=== PATIENT | female | born 1960 | race Caucasian/White ===

== ENCOUNTER 2018-01-27 07:18 | Inpatient (IN) | payer BC ==
[2018-01-27] VITALS (13 sets, daily range): BP systolic 108–137; BP diastolic 62–95; BMI 40.7
[~2018-01-27] VITALS: Ht 175.3 cm; Wt 128.3 kg
[2018-01-27] MEDS ORDERED: HYDROCHLOROTH12.5 M1 PO (07:31)
[2018-01-27] MEDS ORDERED: PRINIVIL20 MG PO (07:31)
[2018-01-27] MEDS ORDERED: TAZTIA XT360 MG PO (07:32)
[2018-01-27 08:05] LABS: BASOPHILS 0.4 % (0-2); EOSINOPHILS 0.4 % (0-7); HEMATOCRIT 52.7 % (36.0-48.0); HEMOGLOBIN 18.8 g/dL (12-16); IMMATURE GRANULOCYTES 0.7 % (0-5); LYMPHOCYTES 7.8 % (15-50); MCH 31.6 pg (26.0-34.0); MCHC 35.7 g/dL (31.0-37.0); MCV 88.6 fL (80.0-100.0); MEAN PLATELET VOLUME 10.4 fL (7.4-10.4); MONOCYTES 7.2 % (2-11); NEUTROPHILS 83.5 % (40-80); RBC 5.95 10x6/uL (4.00-5.40); RDW 13.2 % (11.5-14.5); WBC 8.2 10x3/uL (4.8-10.8)
[2018-01-27 08:15] LABS: PLATELET COUNT 140 10x3/uL (130-400)
[2018-01-27 08:21] LABS: ALBUMIN 3.9 g/dL (3.4-5.0); BILIRUBIN - TOTAL 0.64 mg/dL (0.2-1.3); CALCIUM 9.8 mg/dL (8.5-10.1); CARBON DIOXIDE 29.4 mmol/L (21.0-32.0); CREATININE - SERUM 1.1 mg/dL (0.6-1.3); POTASSIUM - SERUM 4.4 mmol/L (3.5-5.1); PROTEIN - SERUM 7.8 g/dL (6.4-8.2)
[2018-01-27 08:28] LABS: APPEARANCE HAZY (CLEAR); BACTERIA FEW /hpf (NONE SEEN); BILIRUBIN NEGATIVE (NEGATIVE); COLOR DK YELLOW (YELLOW); EPITHELIAL CELLS OCC /hpf (0-5); GLUCOSE NEGATIVE (NEGATIVE); HYALINE CAST RARE /lpf (NONE SEEN); KETONE NEGATIVE (NEGATIVE); MUCUS >1+ /lpf (NONE SEEN); NITRITE NEGATIVE (NEGATIVE); PROTEIN 1+ mg/dL (NEGATIVE); SPECIFIC GRAVITY 1.025 (1.005-1.020); UROBILINOGEN NORMAL (NORMAL); WHITE CELLS - URINE RARE /hpf (0-5)
[2018-01-28 01:20] VITALS: BP 145/90
[2018-01-28 04:59] LABS: BASOPHILS 0.4 % (0-2); EOSINOPHILS 1.4 % (0-7); HEMATOCRIT 48.1 % (36.0-48.0); HEMOGLOBIN 16.4 g/dL (12-16); IMMATURE GRANULOCYTES 0.4 % (0-5); MCH 30.8 pg (26.0-34.0); MCHC 34.1 g/dL (31.0-37.0); MCV 90.4 fL (80.0-100.0); MEAN PLATELET VOLUME 10.3 fL (7.4-10.4); MONOCYTES 11.9 % (2-11); NEUTROPHILS 74.9 % (40-80); PLATELET COUNT 121 10x3/uL (130-400); RBC 5.32 10x6/uL (4.00-5.40); RDW 13.3 % (11.5-14.5); WBC 7.2 10x3/uL (4.8-10.8)
[2018-01-28 05:18] LABS: ANION GAP 7.5 mmol/L (8-16); CALCIUM 8.4 mg/dL (8.5-10.1); MAGNESIUM - SERUM 2.1 mg/dL (1.8-2.4); PHOSPHOROUS 2.1 mg/dL (2.5-4.9); POTASSIUM - SERUM 3.5 mmol/L (3.5-5.1)
[2018-01-28 05:27] VITALS: BP 127/86
[2018-01-28 08:58] VITALS: BP 138/97
[2018-01-28 12:45] VITALS: BP 154/96
[2018-01-28 14:18] VITALS: Ht 175.3 cm; Wt 128.3 kg
[2018-01-28 16:46] VITALS: BP 156/94
[2018-01-28 20:00] VITALS: BP 149/99
[2018-01-29] VITALS: BP 116/77
[2018-01-29 04:00] VITALS: BP 119/82
[2018-01-29 05:39] LABS: BASOPHILS 0.3 % (0-2); EOSINOPHILS 2.5 % (0-7); HEMOGLOBIN 15.6 g/dL (12-16); IMMATURE GRANULOCYTES 0.7 % (0-5); LYMPHOCYTES 19.8 % (15-50); MCH 31.3 pg (26.0-34.0); MCHC 34.7 g/dL (31.0-37.0); MCV 90.2 fL (80.0-100.0); MEAN PLATELET VOLUME 10.2 fL (7.4-10.4); MONOCYTES 10.3 % (2-11); NEUTROPHILS 66.4 % (40-80); PLATELET COUNT 102 10x3/uL (130-400); RBC 4.99 10x6/uL (4.00-5.40); WBC 6.1 10x3/uL (4.8-10.8)
[2018-01-29 05:55] LABS: ANION GAP 9.5 mmol/L (8-16); CALCIUM 8.4 mg/dL (8.5-10.1); CARBON DIOXIDE 26.9 mmol/L (21.0-32.0); CREATININE - SERUM 0.9 mg/dL (0.6-1.3); POTASSIUM - SERUM 3.4 mmol/L (3.5-5.1)
[2018-01-29 08:45] VITALS: BP 135/85
[2018-01-29 12:30] VITALS: BP 137/92
[2018-01-29 16:45] VITALS: BP 120/80
[2018-01-29 20:00] VITALS: BP 126/89
[2018-01-30] VITALS: BP 126/73
[2018-01-30 04:00] VITALS: BP 128/74
[2018-01-30 08:43] VITALS: BP 156/98
== END 2018-01-30 14:42 | disposition home or self-care (01) | DRG 390 ==
LOC: D.ER 07:18 → D.EDHOLD 12:03 → D.MS 12:03
PROVIDERS: Family Medicine; Surgery
PROC: 0D9670Z Drainage of Stomach with Drainage Device, Via Natural or Artificial Opening (ICD-10-PCS; principal; 2018-01-27)
DX: K56.600 Partial intestinal obstruction, unspecified as to cause (principal); I10 Essential (primary) hypertension; F10.10 Alcohol abuse, uncomplicated; Z87.891 Personal history of nicotine dependence

== ENCOUNTER 2018-12-19 06:50 | Inpatient (IN) | payer BC ==
[~2018-12-19] VITALS: Ht 175.3 cm; Wt 122.4 kg
[~2018-12-19 06:50] MED LIST: HYDROCHLOROTH12.5 M1 PO; PRINIVIL20 MG PO; TAZTIA XT360 MG PO
[2018-12-19 07:37] LABS: BASOPHILS 0.3 % (0-2); EOSINOPHILS 0.5 % (0-7); HEMATOCRIT 54.7 % (36.0-48.0); HEMOGLOBIN 19.7 g/dL (12-16); IMMATURE GRANULOCYTES 0.8 % (0-5); LYMPHOCYTES 7.9 % (15-50); MCH 31.9 pg (26.0-34.0); MCV 88.7 fL (80.0-100.0); MEAN PLATELET VOLUME 10.3 fL (7.4-10.4); MONOCYTES 6.3 % (2-11); NEUTROPHILS 84.2 % (40-80); RBC 6.17 10x6/uL (4.00-5.40); RDW 12.9 % (11.5-14.5); WBC 8.7 10x3/uL (4.8-10.8)
[2018-12-19 07:40] LABS: PLATELET COUNT 142 10x3/uL (130-400)
[2018-12-19 07:41] LABS: ANION GAP 15.9 mmol/L (8-16); BILIRUBIN - TOTAL 0.82 mg/dL (0.2-1.3); CALCIUM 9.5 mg/dL (8.5-10.1); CARBON DIOXIDE 23.3 mmol/L (21.0-32.0); CREATININE - SERUM 1.1 mg/dL (0.6-1.3); POTASSIUM - SERUM 4.2 mmol/L (3.5-5.1); PROTEIN - SERUM 7.9 g/dL (6.4-8.2)
--- NOTE | 2018-12-19 12:06 | NUR ---
RECEIVED PT FROM ER. PT IS AAO AND UP AD RONALD. FAMILY AT BEDSIDE. PT CURRENTLY LYING SEMI FOWLERS. CALL LIGHT W/I REACH. RR EVEN AND UNLABORED ON RA. D5LR INFUSING @100ML/HR VIA R.HAND PIV. PT DENIES ANY NEEDS AT THIS TIME. MED REQ, QUICKSTART AND HISTORY COMPLETED. WILL NOTIFY CHARGE NURSE NEED FOR ASSESSMENT. WILL CTM.
[2018-12-19 12:15] VITALS: BP 127/88; BMI 39.9
[2018-12-19 16:43] VITALS: BP 173/88
--- NOTE | 2018-12-19 18:15 | NUR ---
NG TUBE IN PLACE AND SET TO LOW INTERMENTINT SUCTION. PT TOLERATED WELL. WILL CTM.
--- NOTE | 2018-12-19 19:20 | NUR ---
PT AWAKE AND ALERT IN BED SRX2 AND BED LOW AND LOCKED. CALL LIGHT IN REACH AND IS AT BED SIDE. NEWLY PLACED NG TUBE IS CLAMPOED AND PT IS AWAITING CT SCAN.
[2018-12-19 19:27] LABS: APTT 30.7 SECONDS (22.8-39.4); INR 1.12 (0.85-1.17); PROTIME 13.9 SECONDS (11.6-15.0)
[2018-12-19 20:00] VITALS: BP 143/89
--- NOTE | 2018-12-19 23:58 | NUR ---
RESTING NOW AFTER ZOFRAN AND MSO4 GIVEN PT IS REALING COMPLAINING ABOUT THE NG TUBE THAT IS IT PAINFUL AND THAT HE CAN NOT TAKE IT.
[2018-12-20] VITALS: BP 137/86
[2018-12-20 04:20] VITALS: BP 144/88
[2018-12-20 04:45] LABS: APPEARANCE CLEAR (CLEAR); BILIRUBIN NEGATIVE (NEGATIVE); COLOR DK YELLOW (YELLOW); GLUCOSE NEGATIVE (NEGATIVE); KETONE NEGATIVE (NEGATIVE); NITRITE NEGATIVE (NEGATIVE); PROTEIN NEGATIVE (NEGATIVE)
[2018-12-20 04:46] LABS: BASOPHILS 0.2 % (0-2); EOSINOPHILS 1.2 % (0-7); HEMATOCRIT 49.3 % (36.0-48.0); HEMOGLOBIN 17.1 g/dL (12-16); IMMATURE GRANULOCYTES 0.5 % (0-5); LYMPHOCYTES 14.7 % (15-50); MCH 31.6 pg (26.0-34.0); MCHC 34.7 g/dL (31.0-37.0); MEAN PLATELET VOLUME 10.4 fL (7.4-10.4); MONOCYTES 11.9 % (2-11); NEUTROPHILS 71.5 % (40-80); PLATELET COUNT 136 10x3/uL (130-400); RBC 5.41 10x6/uL (4.00-5.40); RDW 13.2 % (11.5-14.5)
[2018-12-20 05:02] LABS: MCV 91.1 fL (80.0-100.0); WBC 6.5 10x3/uL (4.8-10.8)
--- NOTE | 2018-12-20 05:10 | NUR ---
I have reviewed this patient and I concur with the Shift Assessment completed by the Licensed Practical Nurse today this shift.
[2018-12-20 05:20] LABS: ALBUMIN 3.2 g/dL (3.4-5.0); BILIRUBIN - TOTAL 0.77 mg/dL (0.2-1.3); CALCIUM 8.3 mg/dL (8.5-10.1); POTASSIUM - SERUM 3.7 mmol/L (3.5-5.1); PROTEIN - SERUM 6.5 g/dL (6.4-8.2)
[2018-12-20 05:24] LABS: ANION GAP 9.3 mmol/L (8-16); CARBON DIOXIDE 29.4 mmol/L (21.0-32.0)
[2018-12-20 09:16] VITALS: BP 149/94
[2018-12-20 09:45] VITALS: BMI 39.8
[2018-12-20 12:38] VITALS: BP 165/97
[2018-12-20 16:09] VITALS: Ht 175.3 cm; Wt 122.4 kg
[2018-12-20 17:01] VITALS: BP 143/89
--- NOTE | 2018-12-20 17:11 | NUR ---
ALERT AND ORIENTED X4. SITTING UP IN BED. DC NG TUBE ORDERED. TIP INTACT. FAMILY AT BEDSIDE. DENIES ANY NEEDS AT THIS TIME. CONTINUE PLAN OF CARE AND SAFETY PRECAUTIONS.
--- NOTE | 2018-12-20 19:49 | NUR ---
RESUMING PT CARE. PT IS ALERT LAYING IN BED. FAMILY AT BEDSIDE. NO C/O VOICED. RESPIRATIONS ARE EVEN AND UNLABORED. NO S/S OF DISTRESS NOTED. BED IN LOW POSITION WITH CALL LIGHT IN REACH. WILL CONTINUE TO MONITOR PT AND FOLLOW PLAN OF CARE.
[2018-12-20 20:00] VITALS: BP 158/88
[2018-12-21] VITALS: BP 121/72
[2018-12-21 04:00] VITALS: BP 133/731
[2018-12-21 04:45] LABS: BASOPHILS 0.4 % (0-2); EOSINOPHILS 1.8 % (0-7); HEMATOCRIT 48.8 % (36.0-48.0); IMMATURE GRANULOCYTES 0.7 % (0-5); MCH 31.4 pg (26.0-34.0); MCHC 34.8 g/dL (31.0-37.0); MCV 90.2 fL (80.0-100.0); MEAN PLATELET VOLUME 10.9 fL (7.4-10.4); MONOCYTES 10.2 % (2-11); NEUTROPHILS 68.9 % (40-80); PLATELET COUNT 100 10x3/uL (130-400); RBC 5.41 10x6/uL (4.00-5.40); RDW 13.1 % (11.5-14.5); WBC 5.7 10x3/uL (4.8-10.8)
--- NOTE | 2018-12-21 04:45 | NUR ---
I have reviewed this patient and I concur with the Shift Assessment completed by the Licensed Practical Nurse today this shift.
[2018-12-21 04:55] LABS: ALBUMIN 3.1 g/dL (3.4-5.0); ALKALINE PHOSPHATASE 65 U/L (46-116); ALT (SGPT) 42 U/L (10-68); BILIRUBIN - TOTAL 0.97 mg/dL (0.2-1.3); CALC OSMOLALITY 273 mosm/kg (275-300); CALCIUM 8.6 mg/dL (8.5-10.1); CARBON DIOXIDE 30.1 mmol/L (21.0-32.0); CHLORIDE - SERUM 100 mmol/L (98-107); CREATININE - SERUM 0.8 mg/dL (0.6-1.3); GLUCOSE 138 mg/dL (74-106); PROTEIN - SERUM 6.3 g/dL (6.4-8.2); SODIUM 135 mmol/L (136-145); UREA NITROGEN 18 mg/dL (7-18); eGFR NON AFRICAN AMERICAN 78 mL/min (90-120)
[2018-12-21 05:04] LABS: POTASSIUM - SERUM 3.8 mmol/L (3.5-5.1)
--- NOTE | 2018-12-21 06:09 | NUR ---
PT LAYING IN BED RESTING COMFORTABLY WITH EYES CLOSED. NO S/S OF DISTRESS NOTED. BED IN LOW POSITION WITH CALL LIGHT IN REACH. WILL CONTINUE TO MONITOR PT AND FOLLOW PLAN OF CARE.
[2018-12-21 07:56] VITALS: BP 143/83
--- NOTE | 2018-12-21 07:57 | NUR ---
PATIENT SITTING UP ON SIDE OF THE BED WITH NO COMPLAINTS OR SIGNS OF DISTRESS. IV INTACT. CALL LIGHT WITHIN REACH.
--- NOTE | 2018-12-21 08:00 | NUR ---
PATIENT STATED PANEL EDGE SEALER TOLD HIM HE WOULD BE DISCHARGED TODAY. TPN BAG ALMOST COMPLETE. TURNED RATE DOWN TO 40. IV INTACT. NO COMPLAINTS. WILL TALK WITH CHILD SUPPORT SPECIALIST ABOUT DC.
--- NOTE | 2018-12-21 08:04 | NUR ---
PATIENT AMBULATING IN [facility] WITH IV INTACT. NO PROBLEMS AT THIS TIME.
[2018-12-21] MEDS ORDERED: PROTONIX40 MG PO (09:43)
[2018-12-21] MEDS ORDERED: MIRALAX17 GM PO (09:43)
--- NOTE | 2018-12-21 11:51 | NUR ---
PATIENT STATED HAD A BM AT THIS TIME WITH NO PROBLEMS. PATIENT STATED HE HASNT BEEN TOLD TO SAVE STOOL FOR OCCULT BLOOD. EXPLAINED IF HAS ANOTHER ONE TO LET NURSE KNOW SO IT CAN BE COLLECTED. VERBALIZED UNDERSTANDING.
[2018-12-21 11:54] VITALS: BP 141/95
--- NOTE | 2018-12-21 14:21 | MORECARE ---
CASE MANAGEMENT DISCHARGE SUMMARY PATIENT: RONNIE NINO UNIT: [id number] ADM DATE: 12/19/18 AGE: 58 : 60 SEX: M ROOM/BED: D.2101 AUTHOR: GEORGINA NIXON PHYSICIAN: REFERRING PHYSICIAN: DAFNE MALDONADO MD DATE OF SERVICE: 12/21/18 Discharge Plan Patient Name: RONNIE NINO [facility] [facility] 1960 Planned Disposition: Home Anticipated Discharge Date: 12/21/18 Discharge Date: Expected LOS: 2 Initial Reviewer: [email or web address] Initial Review Date: 12/21/2018 Generated: 12/21/18 3:21 pm DCPIA - Discharge Planning Initial Assessment Updated by [email or web address]: Jacob Pierre on 12/21/18 2:21 pm * Is the patient Alert and Oriented? Yes * How many steps to enter\exit or inside your home? NONE * PCP DR. LIMON * [facility] * Preadmission Environment Home with Family * ADLs Independent * Equipment None * Other Equipment NO MEDICAL EQUIPMENT PROVIDER PREFERENCE * List name and contact numbers for known caregivers / representatives who currently or will assist patient after discharge: SERGIO NINO, SPOUSE, * Verbal permission to speak to the caregivers and representatives has been obtained from the patient. Yes * Community resources currently utilized None * Please name any agencies selected above. NONE * Additional services required to return to the preadmission environment? No * Can the patient safely return to the preadmission environment? Yes * Has this patient been hospitalized within the prior 30 days at any hospital? No Patient Name: RONNIE NINO Page [phone] at 1421 All edits/amendments must be made on the electronic document DICTATION DATE: 12/21/18 142 CUSHION MAKER: CAROL 12/21/18 142 RPT#: [id number] DC DATE: STATUS: ADM IN [facility] [address] [place] [address] END OF REPORT
--- NOTE | 2018-12-21 14:31 | MORECARE ---
CASE MANAGEMENT DISCHARGE SUMMARY PATIENT: RONNIE NINO UNIT: [id number] ADM DATE: 12/19/18 AGE: 58 : 60 SEX: M ROOM/BED: D.2101 AUTHOR: HUSSAIN,DOC PHYSICIAN: REFERRING PHYSICIAN: DAFNE MALDONADO MD DATE OF SERVICE: 12/21/18 Discharge Plan Patient Name: RONNIE NINO Facility: [facility]:[place] : 1960 Planned Disposition: Home Anticipated Discharge Date: 12/21/18 Discharge Date: Expected LOS: 2 Initial Reviewer: [email or web address] Initial Review Date: 12/21/2018 Generated: 12/21/18 3:31 pm Comments DCP- Discharge Planning Updated by [email or web address]: Jacob Pierre on 12/21/18 1:[address] Patient Name: RONNIE NINO Admission Status: ER Accout number: [id number] Admission Date: 12-19-2018 : 1960 Admission Diagnosis:NAUSEA WITH VOMITING, UNSPECIFIED Attending: DAFNE MALDONADO Current LOS: 2 Anticipated DC Date: 12-21-2018 Planned Disposition: Home Primary Insurance: [employer] Discharge Planning Comments: CM MET WITH PT AND SPOUSE IN ROOM TO DISCUSS DISCHARGE PLANNING AND NEEDS. RONNIE NINO provided verbal consent to discuss current and ongoing needs with/in the presence of: SPOUSE, SERGIO. PT REPORTS LIVING AT HOME INDEPENDENTLY WITH SPOUSE. PT HAS NO MEDICAL EQUIPMENT AND NO OUTSIDE SERVICES ASSISTING IN THE HOME. CM DISCUSSED AVAILABILITY OF HOME HEALTH, REHAB SERVICES AND MEDICAL EQUIPMENT. PT DENIES DISCHARGE NEEDS, REPORTS HIS WILL PICK HIM UP FOR DISCHARGE HOME. PT REPORTS THAT HE WAS SUPPOSED TO HAVE REGULAR DIET AND HAD ONLY SOUP FOR LUNCH. CM SPOKE TO BEDSIDE NURSE WHO INFORMED CM THAT SHE THOUGHT PT'S DIET WAS TO BE ADVANCED BUT NO ORDER WAS ENTERED. CM SPOKE TO [place] MARY WHO REFERRED CM TO [facility] NOTE FROM TODAY THAT INDICATES ADVANCEMENT TO FULL LIQUID DIET, IF TOLERATED AND OK WITH SURGERY, PT TO DISCHARGE TODAY. WIRELESS FIELD TECHNICIAN NURSE AND BEDSIDE NURSE NOTIFIED. Manufacturing Planner: Jacob Pierre DCPIA - Discharge Planning Initial Assessment Updated by [email or web address]: Jacob Pierre on 12/21/18 2:21 pm * Is the patient Alert and Oriented? Yes * How many steps to enter\exit or inside your home? NONE * PCP DR. LIMON * Pharmacy [facility] * Preadmission Environment Home with Family * ADLs Independent * Equipment None * Other Equipment NO MEDICAL EQUIPMENT PROVIDER PREFERENCE * List name and contact numbers for known caregivers / representatives who currently or will assist patient after discharge: SERGIO NINO, SPOUSE, * Verbal permission to speak to the caregivers and representatives has been obtained from the patient. Yes * Community resources currently utilized None * Please name any agencies selected above. NONE * Additional services required to return to the preadmission environment? No * Can the patient safely return to the preadmission environment? Yes * Has this patient been hospitalized within the prior 30 days at any hospital? No Last DP export: 12/21/18 1:21 pm Patient Name: RONNIE NINO Page [phone] at 1431 All edits/amendments must be made on the electronic document DICTATION DATE: 12/21/181430 MANAGER PHYSICAL: CAROL 12/21/18 143 RPT#: [id number] DC DATE: STATUS: ADM IN [facility] [address] [place] [address] END OF REPORT
--- NOTE | 2018-12-21 16:45 | NUR ---
PATIENT IV REMOVED WITH CATH TIP INTACT. TOLERATED WITH NO PAIN. AWAITING REGULAR FOOD TRAY TO EAT TO MAKE SURE NO N/V THEN DC. FAMILY AT BEDSIDE. CALL LIGHT WITHIN REACH.
--- NOTE | 2018-12-21 17:30 | NUR ---
PATIENT RECIEVED DC INSTRUCTIONS, VERBALIZED UNDERSTANDING. NO QUESTIONS AT THIS TIME.
--- NOTE | 2018-12-21 17:45 | NUR ---
PATIENT AMBULATED OUT [facility] WITH AND PERSONAL BELONGINGS, TO PRIVATE VEHICLE. [facility] AND PROTON[facility] CALLED INTO [facility] IN [place] PER PATIENT REQUEST.
--- NOTE | 2018-12-22 07:31 | MORECARE ---
CASE MANAGEMENT DISCHARGE SUMMARY PATIENT: RONNIE NINO UNIT: [id number] ADM DATE: 12/19/18 AGE: 58 : 60 SEX: M ROOM/BED: D.2101 AUTHOR: HUSSAINDOC PHYSICIAN: REFERRING PHYSICIAN: DAFNE MALDONADO MD DATE OF SERVICE: 12/22/18 Discharge Plan Patient Name: RONNIE NINO Facility: [facility]:[place] : 1960 Planned Disposition: Home Anticipated Discharge Date: 12/21/18 Discharge Date: 12/21/2018 Expected LOS: 2 Initial Reviewer: [email or web address] Initial Review Date: 12/21/2018 Generated: 12/22/18 8:31 am Comments DCP- Discharge Planning Updated by [email or web address]: Jacob Pierre on 12/21/18 1:[address] Patient Name: RONNIE NINO Admission Status: ER Accout number: [id number] Admission Date: 12-19-2018 : 1960 Admission Diagnosis:NAUSEA WITH VOMITING, UNSPECIFIED Attending: DAFNE MALDONADO Current LOS: 2 Anticipated DC Date: 12-21-2018 Planned Disposition: Home Primary Insurance: [employer] O Discharge Planning Comments: CM MET WITH PT AND SPOUSE IN ROOM TO DISCUSS DISCHARGE PLANNING AND NEEDS. RONNIE NINO provided verbal consent to discuss current and ongoing needs with/in the presence of: SPOUSE, SERGIO. PT REPORTS LIVING AT HOME INDEPENDENTLY WITH SPOUSE. PT HAS NO MEDICAL EQUIPMENT AND NO OUTSIDE SERVICES ASSISTING IN THE HOME. CM DISCUSSED AVAILABILITY OF HOME HEALTH, REHAB SERVICES AND MEDICAL EQUIPMENT. PT DENIES DISCHARGE NEEDS, REPORTS HIS WILL PICK HIM UP FOR DISCHARGE HOME. PT REPORTS THAT HE WAS SUPPOSED TO HAVE REGULAR DIET AND HAD ONLY SOUP FOR LUNCH. CM SPOKE TO BEDSIDE NURSE WHO INFORMED CM THAT SHE THOUGHT PT'S DIET WAS TO BE ADVANCED BUT NO ORDER WAS ENTERED. CM SPOKE TO [place] MARY WHO REFERRED CM TO [facility] NOTE FROM TODAY THAT INDICATES ADVANCEMENT TO FULL LIQUID DIET, IF TOLERATED AND OK WITH SURGERY, PT TO DISCHARGE TODAY. MACHINE SHOP LEAD MAN NURSE AND BEDSIDE NURSE NOTIFIED. Medicine Man: Jacob Pierre DCPIA - Discharge Planning Initial Assessment Updated by [email or web address]: Jacob Pierre on 12/21/18 2:21 pm * Is the patient Alert and Oriented? Yes * How many steps to enter\exit or inside your home? NONE * PCP DR. LIMON * [facility] * Preadmission Environment Home with Family * ADLs Independent * Equipment None * Other Equipment NO MEDICAL EQUIPMENT PROVIDER PREFERENCE * List name and contact numbers for known caregivers / representatives who currently or will assist patient after discharge: SERGIO NINO, SPOUSE, * Verbal permission to speak to the caregivers and representatives has been obtained from the patient. Yes * Community resources currently utilized None * Please name any agencies selected above. NONE * Additional services required to return to the preadmission environment? No * Can the patient safely return to the preadmission environment? Yes * Has this patient been hospitalized within the prior 30 days at any hospital? No Last DP export: 12/21/18 1:31 pm Patient Name: RONNIE NINO Page [phone] at 0731 All edits/amendments must be made on the electronic document DICTATION DATE: 12/22/18729 MEDICAL EQUIPMENT SALES: CAROL 12/22/18729 RPT#: [id number] DC DATE:12/21/18 STATUS: DIS IN [facility] [address] [place] [address] END OF REPORT
== END 2018-12-21 17:45 | disposition home or self-care (01) | DRG 389 ==
LOC: D.ER 06:50 → D.M2 10:33 → EDSEX 10:33 → D.EDHOLD 10:33 → D.M2 10:48
PROVIDERS: Family Medicine; ADMIT Internal Medicine Nephrology; ATTEND Internal Medicine Nephrology
PROC: 0D9670Z Drainage of Stomach with Drainage Device, Via Natural or Artificial Opening (ICD-10-PCS; principal; 2018-12-19)
DX: K56.699 Other intestinal obstruction unspecified as to partial versus complete obstruction (principal); E87.1 Hypo-osmolality and hyponatremia; F17.213 Nicotine dependence, cigarettes, with withdrawal; D75.1 Secondary polycythemia